=== PATIENT | female | born 1950 | race Caucasian/White ===

== ENCOUNTER 2017-01-06 10:08 | Inpatient (IN) | payer BC ==
[~2017-01-06] VITALS: Ht 172.7 cm; Wt 84.5 kg
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
--- NOTE | ~2017-01-06 | OP ---
Record Of Operation [facility] [address] [place]. [address] NAME: SATINDER LANZA : 50 STATUS : ADM IN PAT#: [id number] AGE: 66 ADM/REG DATE : 01/06/17 MR#: [id number] REPORT SERV DATE: 01/10/17 DICTATED BY: DARRIUS TAVERAS DATE: 01/09/17 REPORT STATUS : Draft TRANSCRIBED BY: MODL DATE: 01/09/17 DATE OF PROCEDURE: 01/09/2017 PREOPERATIVE DIAGNOSES: 1. Non-ST segment elevation myocardial infarction. 2. Acute systolic congestive heart failure with EF 30%. 3. Hypertension. 4. Non-insulin dependent diabetes mellitus. 5. Morbid obesity. 6. Hyperlipidemia. POSTOPERATIVE DIAGNOSES: 1. Non-ST segment elevation myocardial infarction. 2. Acute systolic congestive heart failure with EF 30%. 3. Hypertension. 4. Non-insulin dependent diabetes mellitus. 5. Morbid obesity. 6. Hyperlipidemia. OPERATION AND PROCEDURE PERFORMED: 1. Median sternotomy. 2. Extracorporeal circulation. 3. Urgent coronary artery bypass grafting x2, TOSCANO to left anterior descending, reverse greater saphenous vein graft to D2. 4. Transesophageal echocardiography. 5. Endoscopic vein harvest, right thigh. 6. Rigid external fixation of sternum using the SternaLock Sam plating system. 7. Prevena dressing placement. SURGEON: Darrius Taveras MD RECREATION ACTIVITIES COORDINATOR: Marcial Gale. ANESTHESIOLOGIST: Dr. Maged Sánchez M.D. TUBES AND DRAINS: A 24-South Sudanese Nathen to the left pleural space. A 32-South Sudanese straight anterior mediastinal chest tube. Atrial and ventricular pacing wires were placed. POSTOPERATIVE CONDITION: Stable to CVICU The patient was weaned from cardiopulmonary bypass on 5 mcg/kg/minute of dobutamine. INTRAOPERATIVE FINDINGS: Very small LAD 1.2 to 1.3 mm. D2 was 1.4 mm. D1 was very small with poor runoff. There was excellent vein. Transesophageal echo showed pre-EF approximately 30%. No MR, no AI, no . Post bypass markedly improved EF and especially with motion in the anterior wall EF approximately 50%. Record Of Operation [facility] [address] [place]. [address] NAME: SATINDER LANZA : 50 STATUS : ADM IN PAT#: [id number] AGE: 66 ADM/REG DATE : 01/06/17 MR#: [id number] REPORT SERV DATE: 01/10/17 DICTATED BY: DARRIUS TAVERAS DATE: 01/09/17 REPORT STATUS : Draft TRANSCRIBED BY: ODALIS DATE: 01/09/17 DETAILS OF CARDIOPULMONARY BYPASS GRAFTS: 1. Graft #1. TOSCANO to left anterior descending, this was 1.3 mm target. 2. Graft #2. Reverse greater saphenous vein graft to D2, this was 1.4 mm target. Excellent Doppler signals both pre and post protamine. INDICATIONS FOR PROCEDURE: Ms. Lanza is a 66-year-old female who was admitted to an outside hospital with chest pain and was found to have NSTEMI and was transferred to [facility] where she underwent heart catheterization. Heart catheterization revealed chronic total occlusion of the LAD with first and second ostial diagonal disease. She was referred for an operation. Risks, benefits, and alternatives were discussed including but not limited to, bleeding, infection, stroke, , heart attack, need for future operations. All questions were answered. STS risk score was calculated. Risk of less than 5% mortality and less than 20% morbidity were discussed with the patient. All questions were answered. DETAILS OF PROCEDURE: The patient was brought to the operating room, placed supine on the operating room table. After satisfactory induction of general endotracheal anesthesia, she was prepped and draped in usual sterile fashion. Working simultaneously, endoscopic vein harvest was performed from the right leg while median sternotomy was performed. Skin and subcutaneous tissues were divided, clavipectoral fascia was divided. The sternum was divided in the midline. Internal mammary artery was harvested in pedicle fashion. The sternal retractor was placed. Thymic tissue was divided in the midline. Pericardium was opened. Pericardial well was created. Ascending aortic cannulation was achieved at the base of the innominate artery, dual stage venous cannula was placed in the right atrial appendage. Antegrade root vent cardioplegia tack was placed. The conduit was prepared for bypass. The internal mammary artery was brought down through a wide V in the pericardium. The cardiopulmonary bypass was initiated after documentation of an adequate ACT. The targets were inspected, targets were as mentioned in the findings. Cross-clamp was brought up and the heart was arrested with cold antegrade cardioplegia. After the arrest, intermittent aliquots of cardioplegia were given every 13 to 20 minutes throughout the remainder of the cross clamp. The bypasses were then performed as mentioned in the findings. Reverse greater saphenous vein graft was brought up and anastomosed to second diagonal on a soft portion in the mid point, this was approximately 1.4 mm vessel which appeared to have a runoff to the apex. D1 was very small and did not appear to have good runoff either on the catheterization or looking at the epicardial surface of the heart. After completion of the graft which was done with 8-0 Surgipro, the graft was cut to length and spatulated. Aortotomy was performed enlarged with a 4.5 mm punch and running continuous anastomosis was done between the vein graft and proximal aorta using 6-0 Prolene. Vein graft marker was placed. Internal mammary artery was then brought down through a wide V in the pericardium. The LAD was extremely small, approximately 1.2 mm to 1.3 mm, very thin, it was opened in a portion in its distal as this was where it could be found. Did not appear to be any larger toward the proximal end of it. The LAD was opened enlarged with coronary scissors, and then running continuous anastomosis was performed between the LAD and the TOSCANO. There was excellent Doppler flow in the graft both pre and post proximal and distally to the anastomosis. There was excellent flow in the graft. Pedicle was attached to the heart in two places to the epicardium using 6-0 Prolene. Vein graft was de-aired and the cross-clamp was removed. The patient almost immediately returned to sinus rhythm. Pacing Record Of Operation [facility] [address] [facility] [place]. [address] NAME: SATINDER LANZA : 50 STATUS : ADM IN PAT#: [id number] AGE: 66 ADM/REG DATE : 01/06/17 MR#: [id number] REPORT SERV DATE: 01/10/17 DICTATED BY: DARRIUS TAVERAS DATE: 01/09/17 REPORT STATUS : Draft TRANSCRIBED BY: MODKoko DATE: 01/09/17 wires were placed and exteriorized. The patient was able to be weaned from cardiopulmonary bypass without incident. Protamine was administered. The patient was decannulated. All cannulation sites were oversewn with 4-0 Prolene. Hemostasis was achieved. The pericardium was loosely reapproximated over the ascending aorta and right ventricle. A 32-South Sudanese chest tube was placed under the sternum. A 24-[place]ese Nathen was placed in the left pleural space. Both were exteriorized and secured. The chest was then closed. Stainless steel sternal wires were used to reapproximate the sternum. After reapproximating the sternum, three plates were placed, one 100-degree kept at the top of the manubrium and then two box plates along the edges of the sternum. The 100-degree plate was anchored using four 14 mm screws in the box plates using four 12 mm screws apiece. Clavipectoral fascia was reapproximated using running #1 STRATAFIX. Subcutaneous tissues closed using 2-0 Monocryl. Skin closed used 2-0 STRATAFIX. Prevena dressing was placed. The patient was transferred to CVICU in critical, stable condition. [facility]/MODL Darrius Taveras MD / [id number] CC: Darrius Taveras MD
--- NOTE | ~2017-01-06 | CN ---
Consultation Report [facility] [address] [place]. [address] NAME: SATNIDER LANZA : 50 STATUS : ADM IN PAT#: [id number] AGE: 66 ADM/REG DATE : 01/06/17 MR#: [id number] REPORT SERV DATE: 01/06/17 DICTATED BY: OLIVIER BAUMAN DATE: 01/06/17 REPORT STATUS : Draft TRANSCRIBED BY: ODALIS DATE: 01/06/17 DATE OF CONSULTATION: REASON FOR CONSULT: Type 2 diabetes management. CHIEF COMPLAINT: "I was having chest pain earlier, and had a heart attack." HISTORY OF PRESENT ILLNESS: A 66-year-old white female with a history of hypertension, type 2 diabetes, glaucoma, hyperlipidemia, and morbid obesity, initially presented to [facility] after having some significant chest pain. EMS was called. When she got the chest pain, she ended up having elevated troponins along with CPK. Dr. Carlson was consulted and diagnosed the patient with a wqt-[id number] NH. Recommended continuing the heparin drip along with aspirin, holding metformin, and to transfer to [facility] as soon as possible for a left heart catheterization. Dr. Vasquez performed a left heart catheterization today which showed an occluded and collateralized LAD via the right coronary artery. Unsuccessful attempt at wiring the PAINT MAKER from an antegrade approach. There was severe ostial first and second diagonal stenosis. There was kael-[id number] mid circumflex stenosis, mild RCA stenosis with the recommendations for CT surgery consultation for a CABG. CT surgery is currently evaluating her and is temporarily scheduling her CABG for Monday. The patient states that she takes oral agents for her diabetes. She says that her diabetes used to be very well controlled with an A1c in the 5% to 6% range on oral agents. However, about 3 years ago, her leg became extremely stressful taking care of very sick parents and disabled son in which case her diabetes has become more uncontrolled. 3 years ago, she says that her fasting sugars to be in the 80s and now they could be anywhere in the 280s. She does not recall her last A1c, but that it was done about two months ago. She thinks it could be around 8%. She states that her primary care doctor had started her on a third agent in addition to metformin and glipizide, but she started having significant adverse reaction namely hematuria and stop taking that medication. She has not been back to see her PCP to see if there will be any more medication changes. While she has been at [facility], she has had 2 CBGs one was 137 and one was 123, and that was at 1235 and 1434 respectively. She says that she has not had any conversations about the need for insulin, but I did stress the importance of having a tight sugar control given the fact that she now had known multi- vessel coronary artery disease along with a ogc-FJ-[id number] NH. REVIEW OF SYSTEMS: Positive for some chest discomfort, but no chest pain. No shortness of breath, diaphoresis at this time. No dysuria. No abdominal pain or diarrhea. Otherwise, 10 points systems reviewed and are negative. PAST MEDICAL HISTORY: Positive for type 2 diabetes, diverticulosis, glaucoma, and hypertension. SURGICAL HISTORY: Positive for hysterectomy and tonsillectomy. ALLERGIES: TO BACTRIM, CIPRO, CONTRAST DYE, AND DARVON. Consultation Report [address] [place]. [address] NAME: SATINDER LANZA : 50 STATUS : ADM IN [facility]#: [id number] AGE: 66 ADM/REG DATE : 01/06/17 MR#: [id number] REPORT SERV DATE: 01/06/17 DICTATED BY: OLIVIER BAUMAN DATE: 01/06/17 REPORT STATUS : Draft TRANSCRIBED BY: ODALIS DATE: 01/06/17 SOCIAL HISTORY: Denies any alcohol. She lives with her . She has 4 children. She takes care of one of her disabled son. Denies any tobacco. FAMILY HISTORY: Alzheimer's in her mom, cardiovascular disease in her mother and father, stroke in her father. Her father had a stroke and a child. HOME MEDICATIONS: Aspirin 325 mg once a day, glipizide 10 mg twice a day, lisinopril 20 mg daily, lovastatin 40 mg at bedtime, metformin 1000 mg twice a day, metoprolol tartrate 100 mg twice a day, ranitidine 300 mg at bedtime, Systane eye drops, and timolol eye drops twice a day. PHYSICAL EXAMINATION: VITAL SIGNS: Pending. GENERAL: She is no acute distress. Alert and oriented x3. She is very pleasant, jovial. She is accompanied by her daughter and her in the short-stay unit. HEENT: Normocephalic and atraumatic head. Extraocular muscles are intact. Oropharynx is clear. NECK: Supple. No JVD. CARDIAC: Regular rhythm. No murmurs, rubs, or gallops. PULMONARY: Clear to auscultation bilaterally. ABDOMEN: Soft, nontender, and nondistended. Positive bowel sounds. There is no clubbing, cyanosis, or edema. NEUROLOGIC: No focal deficits. SKIN: Warm and dry. PSYCHIATRIC: The patient is cooperative. Mood is appropriate. LABORATORY DATA: Labs show a glucose of 123. CBC and BMP are pending. IMPRESSION: 1. Type 2 diabetes, non-insulin dependent, unclear as to how well controlled it is at this point in time. 2. Multivessel coronary artery disease. 3. Morbid obesity. 4. Hypertension. 5. Hyperlipidemia. 6. Glaucoma. PLAN: Continue to hold her oral agents. We will start her on level 2 sliding scale. We will check an A1c. During the course of the hospitalization may need to start her on Levemir will help but we will have a better idea of her 24 hour insulin requirements, and once her A1c is known. We will continue to follow this patient. Thank you again for this consult. Consultation Report [address] [place]. [address] NAME: SATINDER LANZA : 50 STATUS : ADM IN [facility]#: [id number] AGE: 66 ADM/REG DATE : 01/06/17 MR#: [id number] REPORT SERV DATE: 01/06/17 DICTATED BY: OLIVIER BAUMAN DATE: 01/06/17 REPORT STATUS : Draft TRANSCRIBED BY: ODALIS DATE: 01/06/17 TARIQ Olivier Bauman MD / [id number] CC: Homero Vasquez Jr., M.D.
[2017-01-06] MEDS ORDERED: HALF81 PO (12:22)
[2017-01-06] MEDS ORDERED: ERYTHROMYCIN O3.5 G1 OPH (12:22)
[2017-01-06] MEDS ORDERED: ZESTRIL5 MG PO (12:23)
[2017-01-06] MEDS ORDERED: GLUCOTRO10 PO (12:23)
[2017-01-06] MEDS ORDERED: ZANTAC300 MG PO (12:24)
[2017-01-06] MEDS ORDERED: MEVACOR40 MG PO (12:24)
[2017-01-06] MEDS ORDERED: FORTAMET1000 MG PO (12:24)
[2017-01-06] MEDS ORDERED: TIMOLOL MAL0.5 % OPH (12:25)
[2017-01-06] MEDS ORDERED: SYSTANE OPH (12:25)
[2017-01-06] MEDS ORDERED: LOP100 PO (12:25)
[2017-01-07 07:35] LABS: BASOPHILS 0.4 %; BASOPHILS ABSOLUTE 0.03 10/3/uL (0.0-0.16); EOSINOPHILS 1.7 %; EOSINOPHILS ABSOLUTE 0.13 10/3/uL (0.0-0.53); HEMATOCRIT 34.8 % (36.0-48.0); HEMOGLOBIN 10.9 g/dL (12.0-16.0); IMMATURE GRANULOCYTES 0.4 %; IMMATURE GRANULOCYTES ABSOLUTE 0.03 10/3/uL (0.0-0.11); LYMPHOCYTES ABSOLUTE 1.76 10/3/uL (0.67-4.30); MANUAL DIFF NO %; MEAN CORPUS HGB CONC 31.3 g/dL (32.0-36.0); MEAN CORPUSCULAR HEMOGLOB 25.3 pg (26.0-34.0); MEAN CORPUSCULAR VOLUME 80.7 fL (80-100); MEAN PLATELET VOLUME 9.6 fL (9.2-13.0); MONOCYTES 7.3 %; MONOCYTES ABSOLUTE 0.56 10/3/uL (0.21-1.20); NEUTROPHILS 67.2 %; NEUTROPHILS ABSOLUTE 5.15 10/3/uL (2.02-8.40); PLATELET COUNT 262 10/3/uL (150-400); RBC DISTRIBUTION WIDTH 15.2 % (12.0-16.0); RED CELL COUNT 4.31 10/6/uL (4.0-5.6); WHITE BLOOD CELLS 7.7 10/3/uL (4.5-10.5)
[2017-01-07 07:50] LABS: BUN (BLOOD UREA NITROGEN) 12 MG/DL (6-23); CALCIUM, SERUM 9.2 MG/DL (8.5-10.4); CHLORIDE, SERUM 102 MMOL/L (96-112); CO2 (CARBON DIOXIDE) 26 MMOL/L (24-34); CPK (IF ELEVATED MB BANDS) 187 U/L (0-200); GFR AFRICAN AMERICAN 77 ML/MIN (>=60); GFR NON AFRICAN AMERICAN 67 ML/MIN (>=60); GLUCOSE, SERUM 164 MG/DL (60-99); POTASSIUM, SERUM 4.4 MMOL/L (3.5-5.3); SODIUM, SERUM 137 MMOL/L (135-148); TROPONIN I 3.23 NG/ML (<0.05)
[2017-01-07 14:28] LABS: ASCORBIC ACID (UR NOT ORDER) NEG (NEG); BILIRUBIN, URINE NEGATIVE (NEG); KETONE, URINE NEGATIVE (NEG); LEUKOCYTE ESTERASE(NOT OR TRACE (NEG); WBC (NOT ORDERED) (RFLEX) 8 (0-5)
[2017-01-08 03:57] LABS: BASOPHILS 0.4 %; BASOPHILS ABSOLUTE 0.03 10/3/uL (0.0-0.16); EOSINOPHILS 2.7 %; EOSINOPHILS ABSOLUTE 0.19 10/3/uL (0.0-0.53); HEMATOCRIT 35.8 % (36.0-48.0); HEMOGLOBIN 11.3 g/dL (12.0-16.0); IMMATURE GRANULOCYTES 0.3 %; IMMATURE GRANULOCYTES ABSOLUTE 0.02 10/3/uL (0.0-0.11); LYMPHOCYTES 30.4 %; LYMPHOCYTES ABSOLUTE 2.12 10/3/uL (0.67-4.30); MEAN CORPUS HGB CONC 31.6 g/dL (32.0-36.0); MEAN CORPUSCULAR HEMOGLOB 25.8 pg (26.0-34.0); MEAN CORPUSCULAR VOLUME 81.7 fL (80-100); MEAN PLATELET VOLUME 9.3 fL (9.2-13.0); MONOCYTES 7.4 %; MONOCYTES ABSOLUTE 0.52 10/3/uL (0.21-1.20); NEUTROPHILS 58.8 %; PLATELET COUNT 243 10/3/uL (150-400); RBC DISTRIBUTION WIDTH 15.1 % (12.0-16.0); RED CELL COUNT 4.38 10/6/uL (4.0-5.6)
[2017-01-08 03:59] LABS: MANUAL DIFF NO %
[2017-01-08 04:11] LABS: BUN (BLOOD UREA NITROGEN) 10 MG/DL (6-23); CALCIUM, SERUM 9.3 MG/DL (8.5-10.4); CHLORIDE, SERUM 104 MMOL/L (96-112); CO2 (CARBON DIOXIDE) 27 MMOL/L (24-34); CREATININE 0.84 MG/DL (0.55-1.02); GFR AFRICAN AMERICAN 84 ML/MIN (>=60); GFR NON AFRICAN AMERICAN 72 ML/MIN (>=60); GLUCOSE, SERUM 166 MG/DL (60-99); POTASSIUM, SERUM 4.3 MMOL/L (3.5-5.3); SODIUM, SERUM 142 MMOL/L (135-148)
[2017-01-08 16:11] LABS: POTASSIUM, SERUM 4.3 MMOL/L (3.5-5.3)
[2017-01-08 17:07] LABS: TROPONIN I 0.96 NG/ML (<0.05)
[2017-01-09 04:00] LABS: BASOPHILS 0.5 %; BASOPHILS ABSOLUTE 0.04 10/3/uL (0.0-0.16); EOSINOPHILS 3.5 %; EOSINOPHILS ABSOLUTE 0.31 10/3/uL (0.0-0.53); HEMATOCRIT 33.8 % (36.0-48.0); HEMOGLOBIN 10.6 g/dL (12.0-16.0); IMMATURE GRANULOCYTES 0.6 %; IMMATURE GRANULOCYTES ABSOLUTE 0.05 10/3/uL (0.0-0.11); LYMPHOCYTES 27.9 %; LYMPHOCYTES ABSOLUTE 2.47 10/3/uL (0.67-4.30); MEAN CORPUS HGB CONC 31.4 g/dL (32.0-36.0); MEAN CORPUSCULAR HEMOGLOB 25.6 pg (26.0-34.0); MEAN CORPUSCULAR VOLUME 81.6 fL (80-100); MEAN PLATELET VOLUME 9.5 fL (9.2-13.0); MONOCYTES 9.4 %; MONOCYTES ABSOLUTE 0.83 10/3/uL (0.21-1.20); NEUTROPHILS 58.1 %; NEUTROPHILS ABSOLUTE 5.15 10/3/uL (2.02-8.40); PLATELET COUNT 257 10/3/uL (150-400); RBC DISTRIBUTION WIDTH 15.4 % (12.0-16.0); RED CELL COUNT 4.14 10/6/uL (4.0-5.6); WHITE BLOOD CELLS 8.9 10/3/uL (4.5-10.5)
[2017-01-09 04:02] LABS: MANUAL DIFF NO %
[2017-01-09 04:08] LABS: INTERNATIONAL NORMAL RATI 1.2 UNITS (-); PROTIME (NOT ORD) 14.9 SEC (12.0-14.5)
[2017-01-09 04:22] LABS: % IRON SAT 13 % (20-50); ALBUMIN 3.4 G/DL (3.5-5.0); ALKALINE PHOSPHATASE 78 U/L (45-117); BUN (BLOOD UREA NITROGEN) 11 MG/DL (6-23); CALCIUM, SERUM 9.8 MG/DL (8.5-10.4); CHLORIDE, SERUM 99 MMOL/L (96-112); CO2 (CARBON DIOXIDE) 31 MMOL/L (24-34); CREATININE 0.82 MG/DL (0.55-1.02); GFR AFRICAN AMERICAN 86 ML/MIN (>=60); GFR NON AFRICAN AMERICAN 75 ML/MIN (>=60); GLOBULIN 3.5 G/DL (2.5-4.1); GLUCOSE, SERUM 167 MG/DL (60-99); IRON BINDING CAPACITY 353 MCG/DL (225-410); IRON, SERUM 47 MCG/DL (35-150); POTASSIUM, SERUM 4.3 MMOL/L (3.5-5.3); SGOT(AST) 13 U/L (5-40); SGPT(ALT) 21 U/L (5-65); SODIUM, SERUM 137 MMOL/L (135-148); TOTAL BILIRUBIN 0.4 MG/DL (0-1.2); TOTAL PROTEIN 6.9 G/DL (6.0-8.5)
[2017-01-09 04:24] LABS: TROPONIN I 0.64 NG/ML (<0.05)
[2017-01-09 17:53] LABS: BE (BASE EXCESS) 1.3 MEQ/L (0 +/- 2.5); CARBOXYHEMOGLOBIN 0.3 % (0-3); HCO3 (ACTUAL BICARBONATE) 25.1 MEQ/L (23-27); HEMOBLOGIN CONTENT 10.5 G/DL (12-16); INSTRUMENT SERIAL # 11843; METHEMOGLOBIN 0.5 % (0-3); MODE SIMV; O2 CONTENT 14.2 VOL% (18-24); PCO2 (CO2 TENSION) 37 MMHG (35-45); PO2 (O2 TENSION) 92 MMHG (79-93); SAMPLE Arterial; TIDAL VOLUME 700 ML; pH 7.45 (7.37-7.43)
[2017-01-09 18:00] LABS: HEMATOCRIT 30.5 % (36.0-48.0); HEMOGLOBIN 9.7 g/dL (12.0-16.0)
[2017-01-09 18:03] LABS: PLATELET COUNT 162 10/3/uL (150-400)
[2017-01-09 18:09] LABS: PARTIAL THROMBO TIME 29.1 SEC (22.5-37.2)
[2017-01-09 18:10] LABS: INTERNATIONAL NORMAL RATI 1.5 UNITS (-)
[2017-01-09 18:15] LABS: BUN (BLOOD UREA NITROGEN) 10 MG/DL (6-23); CALCIUM, SERUM 9.4 MG/DL (8.5-10.4); CHLORIDE, SERUM 104 MMOL/L (96-112); CO2 (CARBON DIOXIDE) 28 MMOL/L (24-34); CREATININE 0.87 MG/DL (0.55-1.02); FIBRINOGEN 359 MG/DL (230-462); GFR AFRICAN AMERICAN 80 ML/MIN (>=60); GFR NON AFRICAN AMERICAN 69 ML/MIN (>=60); POTASSIUM, SERUM 3.8 MMOL/L (3.5-5.3); SODIUM, SERUM 137 MMOL/L (135-148)
[2017-01-09 18:17] LABS: PROTIME (NOT ORD) 17.7 SEC (12.0-14.5)
[2017-01-09 18:18] LABS: GLUCOSE, SERUM 110 MG/DL (60-99)
[2017-01-10 00:36] LABS: HEMATOCRIT 30.1 % (36.0-48.0); HEMOGLOBIN 9.6 g/dL (12.0-16.0)
[2017-01-10 03:33] LABS: BASOPHILS 0.1 %; BASOPHILS ABSOLUTE 0.01 10/3/uL (0.0-0.16); EOSINOPHILS 0 %; HEMOGLOBIN 9.5 g/dL (12.0-16.0); IMMATURE GRANULOCYTES 0.5 %; IMMATURE GRANULOCYTES ABSOLUTE 0.08 10/3/uL (0.0-0.11); LYMPHOCYTES 5.1 %; MEAN CORPUS HGB CONC 31.7 g/dL (32.0-36.0); MEAN CORPUSCULAR HEMOGLOB 25.8 pg (26.0-34.0); MEAN CORPUSCULAR VOLUME 81.5 fL (80-100); MEAN PLATELET VOLUME 9.5 fL (9.2-13.0); MONOCYTES ABSOLUTE 0.78 10/3/uL (0.21-1.20); NEUTROPHILS 89.3 %; NEUTROPHILS ABSOLUTE 13.95 10/3/uL (2.02-8.40); RBC DISTRIBUTION WIDTH 15.3 % (12.0-16.0); RED CELL COUNT 3.68 10/6/uL (4.0-5.6)
[2017-01-10 03:34] LABS: MANUAL DIFF NO %; PLATELET COUNT 236 10/3/uL (150-400); WHITE BLOOD CELLS 15.6 10/3/uL (4.5-10.5)
[2017-01-10 03:40] LABS: INTERNATIONAL NORMAL RATI 1.2 UNITS (-); PROTIME (NOT ORD) 15.5 SEC (12.0-14.5)
[2017-01-10 03:45] LABS: BUN (BLOOD UREA NITROGEN) 13 MG/DL (6-23); CHLORIDE, SERUM 108 MMOL/L (96-112); CO2 (CARBON DIOXIDE) 26 MMOL/L (24-34); CREATININE 0.77 MG/DL (0.55-1.02); GFR AFRICAN AMERICAN 93 ML/MIN (>=60); GFR NON AFRICAN AMERICAN 80 ML/MIN (>=60); GLUCOSE, SERUM 67 MG/DL (60-99); POTASSIUM, SERUM 4.4 MMOL/L (3.5-5.3); SODIUM, SERUM 142 MMOL/L (135-148)
[2017-01-10 04:10] LABS: BE (BASE EXCESS) -1.4 MEQ/L (0 +/- 2.5); CARBOXYHEMOGLOBIN 0.3 % (0-3); DEVICE NC; HCO3 (ACTUAL BICARBONATE) 24.8 MEQ/L (23-27); HEMOBLOGIN CONTENT 10.1 G/DL (12-16); INSTRUMENT SERIAL # 11843; METHEMOGLOBIN 0.4 % (0-3); O2 CONTENT 13.6 VOL% (18-24); OPERATOR ID 16469; PCO2 (CO2 TENSION) 48 MMHG (35-45); PO2 (O2 TENSION) 95 MMHG (79-93); SAMPLE Arterial; pH 7.33 (7.37-7.43)
[2017-01-10 13:32] LABS: POTASSIUM, SERUM 4.5 MMOL/L (3.5-5.3)
[2017-01-11 06:18] LABS: BASOPHILS 0.1 %; BASOPHILS ABSOLUTE 0.01 10/3/uL (0.0-0.16); EOSINOPHILS 0.1 %; EOSINOPHILS ABSOLUTE 0.01 10/3/uL (0.0-0.53); HEMATOCRIT 30.4 % (36.0-48.0); HEMOGLOBIN 9.4 g/dL (12.0-16.0); IMMATURE GRANULOCYTES 0.5 %; IMMATURE GRANULOCYTES ABSOLUTE 0.08 10/3/uL (0.0-0.11); LYMPHOCYTES 9.4 %; LYMPHOCYTES ABSOLUTE 1.38 10/3/uL (0.67-4.30); MANUAL DIFF NO %; MEAN CORPUS HGB CONC 30.9 g/dL (32.0-36.0); MEAN CORPUSCULAR VOLUME 84.2 fL (80-100); MEAN PLATELET VOLUME 9.7 fL (9.2-13.0); MONOCYTES ABSOLUTE 1.47 10/3/uL (0.21-1.20); NEUTROPHILS 79.9 %; NEUTROPHILS ABSOLUTE 11.72 10/3/uL (2.02-8.40); PLATELET COUNT 213 10/3/uL (150-400); RBC DISTRIBUTION WIDTH 15.9 % (12.0-16.0); RED CELL COUNT 3.61 10/6/uL (4.0-5.6); WHITE BLOOD CELLS 14.7 10/3/uL (4.5-10.5)
[2017-01-11 06:30] LABS: BUN (BLOOD UREA NITROGEN) 24 MG/DL (6-23); CALCIUM, SERUM 9.3 MG/DL (8.5-10.4); CHLORIDE, SERUM 103 MMOL/L (96-112); CO2 (CARBON DIOXIDE) 26 MMOL/L (24-34); CREATININE 0.94 MG/DL (0.55-1.02); GFR AFRICAN AMERICAN 73 ML/MIN (>=60); GFR NON AFRICAN AMERICAN 63 ML/MIN (>=60); GLUCOSE, SERUM 184 MG/DL (60-99); POTASSIUM, SERUM 4.9 MMOL/L (3.5-5.3); SODIUM, SERUM 135 MMOL/L (135-148)
[2017-01-12 06:07] LABS: BASOPHILS 0.2 %; BASOPHILS ABSOLUTE 0.03 10/3/uL (0.0-0.16); EOSINOPHILS 0.7 %; EOSINOPHILS ABSOLUTE 0.09 10/3/uL (0.0-0.53); HEMATOCRIT 28.2 % (36.0-48.0); IMMATURE GRANULOCYTES 0.7 %; IMMATURE GRANULOCYTES ABSOLUTE 0.08 10/3/uL (0.0-0.11); LYMPHOCYTES 10.4 %; LYMPHOCYTES ABSOLUTE 1.27 10/3/uL (0.67-4.30); MEAN CORPUS HGB CONC 31.9 g/dL (32.0-36.0); MEAN CORPUSCULAR HEMOGLOB 26.4 pg (26.0-34.0); MEAN CORPUSCULAR VOLUME 82.7 fL (80-100); MEAN PLATELET VOLUME 9.1 fL (9.2-13.0); MONOCYTES 10.1 %; MONOCYTES ABSOLUTE 1.24 10/3/uL (0.21-1.20); NEUTROPHILS 77.9 %; NEUTROPHILS ABSOLUTE 9.54 10/3/uL (2.02-8.40); PLATELET COUNT 220 10/3/uL (150-400); RED CELL COUNT 3.41 10/6/uL (4.0-5.6); WHITE BLOOD CELLS 12.3 10/3/uL (4.5-10.5)
[2017-01-12 06:08] LABS: MANUAL DIFF NO %
[2017-01-12 06:23] LABS: BUN (BLOOD UREA NITROGEN) 21 MG/DL (6-23); CALCIUM, SERUM 9.5 MG/DL (8.5-10.4); CHLORIDE, SERUM 97 MMOL/L (96-112); CO2 (CARBON DIOXIDE) 26 MMOL/L (24-34); GFR AFRICAN AMERICAN 110 ML/MIN (>=60); GFR NON AFRICAN AMERICAN 95 ML/MIN (>=60); GLUCOSE, SERUM 148 MG/DL (60-99); POTASSIUM, SERUM 4.5 MMOL/L (3.5-5.3); SODIUM, SERUM 130 MMOL/L (135-148)
[2017-01-13 04:28] LABS: HEMATOCRIT 27.1 % (36.0-48.0); HEMOGLOBIN 8.5 g/dL (12.0-16.0); MEAN CORPUS HGB CONC 31.4 g/dL (32.0-36.0); MEAN CORPUSCULAR HEMOGLOB 25.5 pg (26.0-34.0); MEAN CORPUSCULAR VOLUME 81.4 fL (80-100); MEAN PLATELET VOLUME 9.1 fL (9.2-13.0); PLATELET COUNT 243 10/3/uL (150-400); RBC DISTRIBUTION WIDTH 15.9 % (12.0-16.0); RED CELL COUNT 3.33 10/6/uL (4.0-5.6)
[2017-01-13 04:29] LABS: MANUAL DIFF YES %
[2017-01-13 04:41] LABS: BUN (BLOOD UREA NITROGEN) 20 MG/DL (6-23); CALCIUM, SERUM 9.4 MG/DL (8.5-10.4); CHLORIDE, SERUM 97 MMOL/L (96-112); CO2 (CARBON DIOXIDE) 29 MMOL/L (24-34); CREATININE 0.59 MG/DL (0.55-1.02); GFR AFRICAN AMERICAN 111 ML/MIN (>=60); GFR NON AFRICAN AMERICAN 96 ML/MIN (>=60); GLUCOSE, SERUM 126 MG/DL (60-99); POTASSIUM, SERUM 4.2 MMOL/L (3.5-5.3); SODIUM, SERUM 132 MMOL/L (135-148)
[2017-01-13 05:33] LABS: BAND NEUTROPHILS 2 %; EOSINOPHILS 1 %; LYMPHOCYTES 17 %; METAMYELOCYTES 1 %; MONOCYTES 9 %; PLATELET ESTIMATE ADQ (ADEQUATE); SEGMENTED NEUTROPHIL (0) 70 %; SPHEROCYTES FEW (3-10/OIF); TOTAL NUCLEATED CELLS 100
[2017-01-13] MEDS ORDERED: COREG6 PO (16:51)
[2017-01-13] MEDS ORDERED: LIPITOR40 PO (16:51)
[2017-01-13] MEDS ORDERED: NOVOPEN SC (16:57)
[2017-01-13] MEDS ORDERED: ENDOCET1 TA3 PO (16:57)
[2017-01-13] MEDS ORDERED: LEVEMFLXPN SC (16:58)
== END 2017-01-13 18:30 | disposition home health service (06) | DRG 233 ==
LOC: ENRESERVTM → ENRESERV → ENRESERVDT → CORLMH 10:08 → SSU1 11:20 → CORLMH 11:21 → ENPENDDIS 11:21 → SSU1 11:21 → 5NO 11:21 → CVICU 11:21 → 5NO 01-10 16:09
PROVIDERS: Hospitalist; Internal Medicine Cardiovascular Disease; Internal Medicine Pulmonary Disease; Nurse Practitioner Adult Health; Nurse Practitioner Family; Thoracic Surgery (Cardiothoracic Vascular Surgery)
PROC: 4A023N7 Measurement of Cardiac Sampling and Pressure, Left Heart, Percutaneous Approach (ICD-10-PCS; principal; 2017-01-06)
PROC: B2111ZZ Fluoroscopy of Multiple Coronary Arteries using Low Osmolar Contrast (ICD-10-PCS; 2017-01-06)
PROC: 0210093 Bypass Coronary Artery, One Artery from Coronary Artery with Autologous Venous Tissue, Open Approach (ICD-10-PCS; 2017-01-06)
PROC: B2151ZZ Fluoroscopy of Left Heart using Low Osmolar Contrast (ICD-10-PCS; 2017-01-06)
PROC: 0210099 Bypass Coronary Artery, One Artery from Left Internal Mammary with Autologous Venous Tissue, Open Approach (ICD-10-PCS; 2017-01-06)
PROC: 06BP4ZZ Excision of Right Saphenous Vein, Percutaneous Endoscopic Approach (ICD-10-PCS; 2017-01-09)
PROC: 0PH000Z Insertion of Rigid Plate Internal Fixation Device into Sternum, Open Approach (ICD-10-PCS; 2017-01-09)
PROC: B246ZZ4 Ultrasonography of Right and Left Heart, Transesophageal (ICD-10-PCS; 2017-01-09)
PROC: 5A1221Z Performance of Cardiac Output, Continuous (ICD-10-PCS; 2017-01-09)
DX: I21.4 Non-ST elevation (NSTEMI) myocardial infarction (principal); I50.21 Acute systolic (congestive) heart failure; D62 Acute posthemorrhagic anemia; I25.119 Atherosclerotic heart disease of native coronary artery with unspecified angina pectoris; E78.00 Pure hypercholesterolemia, unspecified; I11.0 Hypertensive heart disease with heart failure; E11.9 Type 2 diabetes mellitus without complications; E78.5 Hyperlipidemia, unspecified; Z82.49 Family history of ischemic heart disease and other diseases of the circulatory system; Z83.3 Family history of diabetes mellitus; Z88.1 Allergy status to other antibiotic agents; Z88.6 Allergy status to analgesic agent; Z91.041 Radiographic dye allergy status; Z53.09 Procedure and treatment not carried out because of other contraindication; H40.9 Unspecified glaucoma; E66.9 Obesity, unspecified; Z68.30 Body mass index [BMI] 30.0-30.9, adult
CPT/HCPCS: 36415; 71010; 71020; 80048; 80053; 81001; 82330; 82550; 82803; 82805; 82947; 82962; 83036; 83540; 83550; 83735; 84132; 84295; 84443; 84484; 85014; 85018; 85025; 85049; 85347; 85384; 85610; 85730; 86850; 86900; 86901; 87641; 93005; 93312; 93320; 93325; 93458; 93882; 94002; 94640; 94660; 94770; 99152; 99153; A9270-GY; C1713; C1751; C1757; C1769; C1887; C1894; G0365; J0690; J1200; J1644; J1885; J1940; J2150; J2250; J2370; J2405; J2440; J2720; J2930; J3010; J3370; J3475; J3480; P9045; P9047; Q9967